=== PATIENT | male | born 1955 | race Caucasian/White ===

== ENCOUNTER 2016-11-23 13:00 | Emergency (ER) | payer BC, OTHER ==
[2016-11-23 13:11] VITALS: BP 142/77; PULSE 77; RESP 18; TEMP 97.5; O2SAT 95
--- NOTE | 2016-11-23 13:24 | EDPHY ---
H & P Time Seen by Provider: 11/23/16 13:14 HPI/ROS: CHIEF COMPLAINT: Right hand pain HISTORY OF PRESENT ILLNESS: 61-year-old ambidextrous male complaining of acute right 4th and 5th metacarpal pain after he slipped on the ice 3 days ago And landed on this area. Reproducible pain with palpation. No wrist pain. No paresthesia. Intact skin. PHYSICAL EXAM (Prior to examination, patient consented to physical exam, hands were washed and my usual and customary physical exam procedures followed) 1) GENERAL: Well-developed, well-nourished, alert and oriented. Appears to be in no acute distress. 2) HEAD: Normocephalic 3) HEENT: Pupils equal, round, reactive to light bilaterally. 4) LUNGS: Breathing comfortably. 5) MUSCULOSKELETAL: Soft compartments. Normal coloration. Tender to palpation 4th and 5th metacarpal with no deformity. No angulation. No shortening. Normal cascading of digit. 6) SKIN: intact. No discoloration. No erythema. No ecchymosis. 7) VASCULAR: pulses and cap refill present are brisk 8) NEUROLOGIC: Radial, ulnar, median nerve function intact with no deficits appreciated on exam DIFFERENTIAL DIAGNOSIS: in no particular order including but not limited to fracture, sprain, compartment syndrome Xray of the right hand interpreted by myself: Mildly displaced fracture of the shaft of the 4th metacarpal Procedure: Splint An ulnar gutter Ortho Glass splint was applied by ER triage technician. After application of the splint I returned and re-examined the patient. The splint was adequately immobilizing the joint and distal to the splint the patient's circulation and sensation were intact. Patient shows no signs of compartment syndrome. Was given orthopedic precautions. Smoking Status: Never smoked Constitutional: Initial Vital Signs Temperature (C) 36.4 C 11/23/16 13:07 Heart Rate 77 11/23/16 13:07 Respiratory Rate 18 11/23/16 13:07 Blood Pressure 142/77 H 11/23/16 13:07 O2 Sat (%) 95 11/23/16 13:07 Allergies/Adverse Reactions: No Known Allergies Allergy (Unverified 11/23/16 13:07) Home Medications: Medication Instructions Recorded Hydrocodone/APAP 5/325 [Pacifica 1 tab PO Q6 PRN #10 tab 11/23/16 5/325 (RX)] MDM/Departure - Depart Disposition: Home, Routine, Self-Care Clinical Impression: Fracture of fourth metacarpal bone of right hand Qualifiers: Encounter type: initial encounter Fracture type: closed Metacarpal location: shaft Fracture alignment: displaced Qualifier Code: (S62.324A) Displaced fracture of shaft of fourth metacarpal bone, right hand, initial encounter for closed fracture Condition: Good Instructions: Hand Fracture (ED) Additional Instructions: Return to the ER immediately if you experience discoloration, have worsening pain, numbness, tingling, or any other symptoms that concern you. If you received x-rays in the emergency department today, be advised, that ligamentous , tendon, muscular, and other non-bony injury cannot be fully ruled out. Try to keep your affected extremity elevated above the level of your chest, and keep cold packs on the affected area, for the next 48 hours. Prescriptions: Hydrocodone/APAP 5/325 [[place] 5/325 (RX)] 1 tab PO Q6 PRN #10 tab PRN Reason: Pain, Severe Referrals: Angel Mendoza MD [Medical Doctor] - 2-3 days, call for appt. (Dr. Angel Mendoza is orthopedic /hand surgeon)
--- NOTE | 2016-11-23 14:07 | DX ---
Right hand - 3 views dated November 23, 2016 Indication: Fell 3 days ago. Pain. Findings: An acute midshaft fracture of the 4th metacarpal has 15 degrees of apex dorsal angulation. No involvement of the articular surface. No additional fractures. Minimal degenerative arthropathy i s present at the radiocarpal joint. Impression: Acute minimally angulated midshaft 4th metacarpal fracture.
== END 2016-11-23 14:15 | disposition home or self-care (01) ==
DX: S62.324A Displaced fracture of shaft of fourth metacarpal bone, right hand, initial encounter for closed fracture (principal); W00.0XXA Fall on same level due to ice and snow, initial encounter